=== PATIENT | female | born 1995 | race Hispanic/Latino ===

== ENCOUNTER → 2024-11-02 | Outpatient (CLI) | payer BC ==
--- NOTE | 2024-11-02 16:53 | HMCIMG ---
Bilateral BREAST ULTRASOUND: HISTORY: Mastodynia COMPARISON: None FINDINGS: The breast and axilla were evaluated. Bilateral prominent retroareolar ducts are seen and there is a left breast 6:00 position superficial subcutaneous sebaceous cyst, benign, 7 x 2 x 6 mm. There are no worrisome lesions either side. Impression: Benign bilateral breast ultrasound. BI-RADS: CATEGORY 2: BENIGN FINDINGS Note: A negative x-ray should not delay biopsy if a dominant or clinically suspicious mass is present, since 8-10% of cancers are not identified by mammography. Dense breasts particularly, may obscure an underlying neoplasm. Thank you for allowing me to participate in this patient's care. If I can be of further assistance, please do not hesitate to call. A negative report should not delay biopsy if a clinically suspicious mass is present. Some cancers are not identified by imaging studies.
== END | disposition home or self-care (01) ==
LOC: RAH 14:18
PROVIDERS: ATTEND Family Medicine
DX: N60.82 Other benign mammary dysplasias of left breast (principal); N64.89 Other specified disorders of breast; N64.4 Mastodynia